=== PATIENT | female | born 2000 | race American Indian/Alaskan Native ===

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

== ENCOUNTER 2021-09-05 16:42 | Emergency (ER) | payer MEDICAID, OTHER ==
[2021-09-05 17:52] LABS: ANION GAP 14.7 mEq/L (7-13); CHLORIDE,CL 104 mmol/L (98-107); SODIUM,NA 139 mmol/L (136-145)
[2021-09-05 18:03] LABS: AMPHETAMINES,URINE NEGATIVE (NEGATIVE); BARBITURATES,URINE NEGATIVE (NEGATIVE); BENZODIAZEPINE,URINE NEGATIVE (NEGATIVE); MDMA (ECSTASY), URINE NEGATIVE (NEGATIVE); METHADONE,URINE NEGATIVE (NEGATIVE); METHAMPHETAMINES,URINE NEGATIVE (NEGATIVE); OPIATES,URINE NEGATIVE (NEGATIVE); OXYCODONE,URINE NEGATIVE (NEGATIVE); PHENCYCLIDINE,URINE NEGATIVE (NEGATIVE); TCA,URINE NEGATIVE (NEGATIVE)
[2021-09-05] MEDS ORDERED: Sodium Chloride 0.9% 1,000 ML IV ONE (20:08)
[2021-09-05] MEDS ORDERED: Ketorolac 30 MG/ML SDV IVPUSH ONE (20:08)
[2021-09-05 20:40] LABS: CORONAVIRUS COVID-19 NAA NEGATIVE (NEGATIVE)
[2021-09-05 21:43] VITALS: BP 114/63; PULSE 82
== END 2021-09-05 22:20 | disposition home or self-care (01) ==
LOC: DL.ED 16:42
DX: G43.919 Migraine, unspecified, intractable, without status migrainosus (principal); Z20.822 Contact with and (suspected) exposure to COVID-19
CPT/HCPCS: 0240U; 36415; 70450; 80053; 80305; 81001; 81025; 85025; 85610; 87086; 96374; 99284; J1885; J7030

== ENCOUNTER 2021-09-07 02:21 | Emergency (ER) | payer OTHER ==
[2021-09-07 02:59] LABS: ANION GAP 12.8 mEq/L (7-13); CHLORIDE,CL 109 mmol/L (98-107); SODIUM,NA 142 mmol/L (136-145)
[2021-09-07] MEDS ORDERED: Metoclopramide 10 MG/2 ML SDV IVPUSH ONE (02:59)
[2021-09-07 03:17] LABS: ACETAMINOPHEN 0 ug/mL (10-30 (Therapeutic))
[2021-09-07] MEDS ORDERED: Ondansetron 4 MG/2 ML SDV IVPUSH ONE (03:27)
[2021-09-07] MEDS ORDERED: HYDROmorphone 0.5 MG/0.5 ML Syringe IVPUSH ONE (04:57)
[2021-09-07] MEDS ORDERED: Promethazine 25 MG/ML SDV IM ONE (05:33)
[2021-09-07 11:12] LABS: AMPHETAMINES,URINE NEGATIVE (NEGATIVE); BARBITURATES,URINE NEGATIVE (NEGATIVE); BENZODIAZEPINE,URINE NEGATIVE (NEGATIVE); MDMA (ECSTASY), URINE NEGATIVE (NEGATIVE); METHADONE,URINE NEGATIVE (NEGATIVE); METHAMPHETAMINES,URINE NEGATIVE (NEGATIVE); OPIATES,URINE NEGATIVE (NEGATIVE); OXYCODONE,URINE NEGATIVE (NEGATIVE); PHENCYCLIDINE,URINE NEGATIVE (NEGATIVE); TCA,URINE NEGATIVE (NEGATIVE)
[2021-09-07 16:42] VITALS: BP 119/75; PULSE 98
== END 2021-09-07 18:00 ==
LOC: DL.ED 02:21
DX: N30.01 Acute cystitis with hematuria (principal); G93.2 Benign intracranial hypertension; R47.01 Aphasia
CPT/HCPCS: 36415; 70450; 80053; 80143; 80179; 80305; 80307; 81001; 81025; 85025; 87086; 96372; 96374; 96375; 99285; J1170; J2405; J2550; J2765; 99284

== ENCOUNTER 2021-10-06 17:16 | Emergency (ER) | payer MEDICAID, OTHER ==
[2021-10-06 17:27] VITALS: BP 133/85; PULSE 101
== END 2021-10-06 17:55 | disposition home or self-care (01) ==
LOC: DL.ED 17:16
DX: M54.50 Low back pain, unspecified (principal); Z72.0 Tobacco use
CPT/HCPCS: 99283

== ENCOUNTER 2022-12-22 09:08 | Emergency (ER) | payer MEDICAID ==
[2022-12-22 09:21] VITALS: BP 141/96; PULSE 108
== END 2022-12-22 09:48 | disposition home or self-care (01) ==
LOC: DL.ED 09:08
DX: H61.22 Impacted cerumen, left ear (principal); Z86.16 Personal history of COVID-19
CPT/HCPCS: 69209; 99282

== ENCOUNTER 2022-12-23 14:41 | Emergency (ER) | payer MEDICAID ==
[2022-12-23 14:51] VITALS: BP 129/86; PULSE 120
== END 2022-12-23 16:07 | disposition home or self-care (01) ==
LOC: DL.ED 14:41
DX: H61.22 Impacted cerumen, left ear (principal); Z86.16 Personal history of COVID-19
CPT/HCPCS: 69209; 99282; 99283

== ENCOUNTER 2025-01-11 23:00 | Emergency (ER) | payer MEDICAID, OTHER ==
[2025-01-12] VITALS: BP 126/66; PULSE 81
== END 2025-01-12 00:06 | disposition home or self-care (01) ==
LOC: DL.ED 23:00
DX: M76.72 Peroneal tendinitis, left leg (principal); Z86.16 Personal history of COVID-19
CPT/HCPCS: 99282; 99283